=== PATIENT | male | born 1980 | race African-American/Black ===

== ENCOUNTER 2018-01-12 22:01 | Emergency (ER) | payer MEDICAID, OTHER ==
[~2018-01-12] VITALS: Ht 177.8 cm; Wt 91.0 kg
[2018-01-12] MEDS ORDERED: SODIUM CHLORIDE 0.9% 1,000 ML IV ONE ×2 (22:53)
[2018-01-12] MEDS ORDERED: TETANUS, DIPHTHERIA, PERTUSSIS VAC/PF 0.5ML (>7YR OLD) IM ONE (23:00)
[2018-01-12] MEDS ORDERED: FENTANYL CITRATE/PF 50MCG/ML 2ML VIAL IV ONE (23:00)
[2018-01-12 23:16] LABS: HEMATOCRIT. 45.2 % (42.0-52.0); HEMOGLOBIN. 15.6 g/dL (14.0-18.0); MEAN CORPUSCULAR HEMOGLOBIN 32.5 pg (28.0-32.0); MEAN CORPUSCULAR VOLUME 94.2 fL (80.0-94.0); MEAN PLATELET VOLUME 8.7 fl (7.4-10.4); PLATELET 199 x1000/uL (130-400); RED CELL DISTRIBUTION WIDTH 13.1 % (11.6-14.6)
[2018-01-12 23:21] LABS: CHLORIDE 103 mEq/L (98-107); INR 1.1; PROTHROMBIN TIME 11.1 sec (9.4-11.6)
[2018-01-12 23:25] LABS: AMMONIA 28 uMol/L (<32); ETHANOL BLOOD 132 mg/dL
[2018-01-12 23:29] LABS: CREATINE KINASE 243 IU/L (39-308)
[2018-01-13] LABS: PLATELET ESTIMATE NORMAL
[2018-01-13] MEDS ORDERED: LEVETIRACETAM 500MG PREMIX 100 ML IV ONE ×2 (00:15)
[2018-01-13] MEDS ORDERED: DEXAMETHASONE 10 MG/ML VIAL IV ONE (00:15)
[2018-01-13 02:44] VITALS: BP 142/76
== END 2018-01-13 02:50 | disposition short-term general hospital (02) ==
LOC: EDBD 22:01 → ER 22:49
DX: S02.19XA Other fracture of base of skull, initial encounter for closed fracture (principal); S02.81XA Fracture of other specified skull and facial bones, right side, initial encounter for closed fracture; S02.82XA Fracture of other specified skull and facial bones, left side, initial encounter for closed fracture; G93.89 Other specified disorders of brain; F17.200 Nicotine dependence, unspecified, uncomplicated; F10.129 Alcohol abuse with intoxication, unspecified; Y08.02XA Assault by strike by baseball bat, initial encounter; Y93.89 Activity, other specified; Y92.89 Other specified places as the place of occurrence of the external cause; Y99.8 Other external cause status
CPT/HCPCS: 36415; 70450; 70486; 72125; 80053; 80307; 80329; 82140; 82550; 83690; 85025; 85610; 90471; 90715; 96365; 96375; 99291; G0482; J1100; J1953; J3010; J7030; Z7610; 99285

== ENCOUNTER 2023-09-25 10:10 | Emergency (ER) | payer MEDICAID, OTHER ==
[~2023-09-25] VITALS: Ht 182.9 cm; Wt 79.0 kg
[2023-09-25 10:20] VITALS: BP 145/80; PULSE 82; RESP 20; TEMP 98.3; O2SAT 100
[2023-09-25] MEDS ORDERED: IBUPROFEN 600MG TABLET PO ONE (11:00)
[2023-09-25] MEDS ORDERED: IBUP-2029 MT (12:42)
== END 2023-09-25 13:01 | disposition home or self-care (01) ==
LOC: ER 10:10
DX: S16.1XXA Strain of muscle, fascia and tendon at neck level, initial encounter (principal); S50.01XA Contusion of right elbow, initial encounter; Z98.890 Other specified postprocedural states; V98.8XXA Other specified transport accidents, initial encounter; Y93.89 Activity, other specified; Y92.89 Other specified places as the place of occurrence of the external cause; Y99.8 Other external cause status
CPT/HCPCS: 71045; 72131; 99284

== ENCOUNTER 2023-10-10 10:47 | Emergency (ER) | payer MEDICAID ==
[~2023-10-10] VITALS: Ht 172.7 cm; Wt 91.0 kg
[~2023-10-10 10:47] MED LIST: IBUP-2029 MT
[2023-10-10 10:54] VITALS: O2SAT 98
[2023-10-10] MEDS ORDERED: IBUPROFEN 800MG TABLET PO ONE (13:00)
[2023-10-10] MEDS ORDERED: IBUPROFEN 400MG TABLET PO NR (13:45)
[2023-10-10] MEDS ORDERED: CYCL10TA21 MT (14:08)
[2023-10-10] MEDS ORDERED: IBUP-2030 MT (14:08)
[2023-10-10 14:24] VITALS: BP 145/89; PULSE 83; RESP 16; TEMP 98.7
== END 2023-10-10 14:25 | disposition home or self-care (01) ==
LOC: ER 11:11
DX: R10.2 Pelvic and perineal pain (principal); T14.8XXA Other injury of unspecified body region, initial encounter; X58.XXXA Exposure to other specified factors, initial encounter; Y93.89 Activity, other specified; Y92.89 Other specified places as the place of occurrence of the external cause; Y99.8 Other external cause status
CPT/HCPCS: 72170; 99283

== ENCOUNTER 2024-02-06 13:19 | Emergency (ER) | payer MEDICAID, OTHER ==
[~2024-02-06] VITALS: Ht 177.8 cm; Wt 90.0 kg
[~2024-02-06 13:19] MED LIST changes: +CYCL10TA21 MT; +IBUP-2030 MT
[2024-02-06 13:28] VITALS: O2SAT 100
[2024-02-06 19:18] VITALS: BP 133/59; PULSE 59; RESP 16; TEMP 97.6
== END 2024-02-06 19:20 | disposition home or self-care (01) ==
LOC: ER 13:19
DX: S60.946A Unspecified superficial injury of right little finger, initial encounter (principal); V98.8XXA Other specified transport accidents, initial encounter; Y93.89 Activity, other specified; Y92.89 Other specified places as the place of occurrence of the external cause; Y99.8 Other external cause status
CPT/HCPCS: 73120; 29130; 99283; Z7610

== ENCOUNTER 2024-04-30 19:35 | Emergency (ER) | payer MEDICAID ==
[~2024-04-30] VITALS: Ht 177.8 cm; Wt 90.0 kg
[2024-04-30 19:52] VITALS: O2SAT 96
[2024-04-30] MEDS ORDERED: CYCL5TAB MT (22:23)
[2024-04-30] MEDS ORDERED: IBUP-2028 MT (22:23)
[2024-04-30 23:18] VITALS: BP 151/94; PULSE 69; RESP 16; TEMP 98.5
== END 2024-04-30 23:21 | disposition home or self-care (01) ==
LOC: ER 19:35
DX: R51.9 Headache, unspecified (principal); M54.2 Cervicalgia
CPT/HCPCS: 99284

== ENCOUNTER 2025-01-31 09:05 | Emergency (ER) | payer MEDICAID ==
[~2025-01-31] VITALS: Ht 175.3 cm; Wt 89.3 kg
[~2025-01-31 09:05] MED LIST changes: +CYCL5TAB3 MT; +IBUP-2028 MT
[2025-01-31 09:15] VITALS: O2SAT 97
[2025-01-31 10:34] VITALS: BP 135/81; PULSE 90; RESP 18; TEMP 36.8; O2SAT 97
== END 2025-01-31 10:35 | disposition home or self-care (01) ==
LOC: ER 09:05
DX: S62.606A Fracture of unspecified phalanx of right little finger, initial encounter for closed fracture (principal); Z79.899 Other long term (current) drug therapy; V49.50XA Passenger injured in collision with unspecified motor vehicles in traffic accident, initial encounter; Y93.89 Activity, other specified; Y92.89 Other specified places as the place of occurrence of the external cause; Y99.8 Other external cause status
CPT/HCPCS: 73140; 99283

== ENCOUNTER 2025-03-12 09:03 | Emergency (ER) | payer MEDICAID ==
[~2025-03-12] VITALS: Ht 177.8 cm; Wt 91.0 kg
[2025-03-12 09:12] VITALS: O2SAT 98
[2025-03-12] MEDS ORDERED: FLUT9.9S BOTHNSTRLS (09:47)
[2025-03-12 10:19] VITALS: BP 138/70; PULSE 70; RESP 16; TEMP 36.7; O2SAT 98
== END 2025-03-12 10:18 | disposition home or self-care (01) ==
LOC: ER 09:03
DX: R04.0 Epistaxis (principal); Z79.899 Other long term (current) drug therapy; Z98.890 Other specified postprocedural states
CPT/HCPCS: 99282

== ENCOUNTER 2025-06-20 00:48 | Emergency (ER) | payer MEDICAID ==
[~2025-06-20] VITALS: Ht 177.8 cm; Wt 92.0 kg
[~2025-06-20 00:48] MED LIST changes: +FLUT9.9S BOTHNSTRLS; +IBUP-1455 MT; -IBUP-2029 MT
[2025-06-20 00:51] VITALS: BP 101/89; PULSE 99; RESP 16; TEMP 37.6; O2SAT 97
[2025-06-20] MEDS ORDERED: LIDO-53 TP (02:49)
[2025-06-20] MEDS ORDERED: NAPR-1176 MT (02:49)
== END 2025-06-20 03:15 | disposition home or self-care (01) ==
LOC: ER 00:48
DX: M79.644 Pain in right finger(s) (principal); M25.511 Pain in right shoulder; Z79.899 Other long term (current) drug therapy; Z98.890 Other specified postprocedural states; Z79.1 Long term (current) use of non-steroidal anti-inflammatories (NSAID)
CPT/HCPCS: 73030; 73130; 99284